=== PATIENT | male | born 1965 ===

== ENCOUNTER 2021-08-16 17:30 | Outpatient (CLI) | payer BC | END 2021-08-16 17:31 | disposition home or self-care (01) | LOC: SLEEPLAB 17:30 | PROVIDERS: ATTEND Internal Medicine Critical Care Medicine | DX: G47.33 Obstructive sleep apnea (adult) (pediatric) (principal); R53.83 Other fatigue; G47.00 Insomnia, unspecified | CPT/HCPCS: 95800 ==